=== PATIENT | female | born 1945 | race Caucasian/White ===

== ENCOUNTER → 2021-02-18 | Day surgery (SDC) | payer MEDICARE ==
[~2021-02-18] MED LIST: ADULT LOW DOSE81 MG PO; CENTRUM SILVER1 EAC4 PO; CITRACAL SOFT1 EACH PO; EFFER-K 10 MEQ10 ME1 PO; FAMOTIDINE 40 M40 M1 PO; FOSAMAX 70 MG T70 MG PO; LOSARTAN POTASS50 MG PO; MYCOPHENOLATE500 MG PO; ROSUVASTATIN CA10 MG PO; SMZ-TMP PO; TIZANIDINE HCL2 M1 PO; TOPROL XL50 MG; TRAMADOL 50 MG50 MG PO; TYLENOL PM EX-1 EACH PO; TYLENOL325 MG PO; VITAMIN D21250 MCG PO; ZOLOFT 50 MG TA50 MG PO
--- NOTE | ~2021-02-18 | OP ---
[facility] [address] [place] [address] OPERATIVE REPORT Name: TEMO BURT Room: [facility]#: [id number] Admission: 02/18/21 Attend Phys: Alejandro Stanton Discharge: Date of : 41 Report #: [id number] THIS REPORT FOR: cc: Christopher Merino Ghaison F. DO Patterson,Alejandro Martinez MD ~ DATE OF SURGERY: 02/18/2021 PREOPERATIVE DIAGNOSIS: Left flank 5 cm benign mass. POSTOPERATIVE DIAGNOSIS: Left flank 5 cm benign mass. OPERATION: Excision of left flank benign 5 cm mass. SURGEON: Alejandro Stanton MD ANESTHESIA: General. ESTIMATED BLOOD LOSS: Minimal. SPECIMENS: Left flank mass. DESCRIPTION OF PROCEDURE: After informed consent was obtained, the patient was brought to the operating room and placed supine. SCDs were placed and working, preoperative antibiotics were administered, general anesthesia was induced. The patient was placed in the right lateral decubitus position. The left flank was prepped and draped in the usual sterile fashion. Area was anesthetized with 10 mL of 0.5% Marcaine. A 7 cm incision was made. Cautery dissection was made down through the subcutaneous tissue. This was carried down to the fascia. A lipoma was encountered. This was fully dissected around and excised from the underlying fascia. I then reapproximated the skin in 2 layers with a 3-0 Vicryl in interrupted fashion for the deep layer and 4-0 Monocryl in running intracuticular fashion for the skin. Sterile dressings were applied. COMPLICATIONS: None. DISPOSITION: The patient was taken to recovery in satisfactory condition. By: [id number] [id number] Stanton MD /nt
[2021-02-18 06:49] LABS: HEMATOCRIT 42.6 % (37.0-47.0); HEMOGLOBIN 13.9 gm/dL (12.0-15.0); MCH 30.9 pg (26.0-34.0); MCHC 32.6 g/dL (28.0-37.0); MCV 94.8 fL (80.0-100.0); MPV 9.4 fl. (7.2-11.1); RBC 4.49 mil/uL (4.20-5.00); RDW-CV 13.4 % (10.5-14.5); WBC 9.5 thou/uL (4.0-11.0)
[2021-02-18 07:49] LABS: CALCIUM 9.8 mg/dL (8.5-10.1); CREATININE 1.2 mg/dL (0.6-1.3); POTASSIUM 3.8 mmol/L (3.5-5.1)
--- NOTE | 2021-02-18 14:21 | EKG ---
[place] [address] ELECTROCARDIOGRAM REPORT Name: TEMO BURT Room: [facility]#: [id number] Admission: 02/18/21 Attend Phys: Alejanrdo Richards Discharge: Date of : 41 Date of Service: 02/18/21 0645 Report #: [id number] THIS REPORT FOR: //name// [facility] Test Date: 2021-02-18 Test Time: 06:45:17 Pat Name: TEMO BURT Department: Room: Gender: F Insurance Territory Manager: LINNEA : 1945 Requested By: Martín Ward Order Number: [id number] Isabelle MD: Juve Tripathi Measurements Intervals [place] Rate: 51 P: 11 AK: 196 QRS: -39 QRSD: 113 T: 17 QT: 450 QTc: 415 Interpretive Statements Sinus rhythm Borderline IVCD with LAD Low voltage, precordial leads Abnormal R-wave progression, early transition Minimal ST depression No previous ECG available for comparison Electronically Signed On 02-18-2021 14:21:36 [employer] by Juve Tripathi [email or web address] <ELECTRONICALLY SIGNED> By: Juve Tripathi MD, [facility] 02/18/21 1421 0645 0645 Juve Tripathi MD, [facility] /EPI
--- NOTE | 2021-02-23 12:06 | PATH ---
[address] [address] PATHOLOGY RPT PROCEDURE Name: TEMO BURT Room: [facility].#: [id number] Admission: 02/18/21 Date of : 41 Discharge: Report #: [id number] Path Case #: [id number] [facility] Accession Number: [id number] . 01 Material submitted: . back - LEFT BACK MASS. Modifiers: left . 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 (KAYDEN:jumana; 02/20/2021) MBR 02/20/2021 1549 Local . 02 Electronically signed: . Gabe Jacobs MD, Pathologist NPI- [id number] . 01 Gross description: . Fixative: Formalin Labeled: Left back mass Specimen received: Single segment of bright yellow, lobulated tissue Dimensions: 5.5 x 5.2 x 1.8 cm External surface: Bright yellow, smooth Cut surface: Bright yellow, lobulated and glistening . Produce Department Manager sections are submitted in A1-A2. ([facility]; 02/19/2021) NRI/NRI 02/19/2021 1842 Local . 02 Pathologist provided ICD-10: D17.1 . 02 CPT . 004126 Specimen Comment: A courtesy copy of this report has been sent to [phone] Specimen Comment: [id number] Specimen Comment: Report sent to / DR ORDAZ Specimen Comment: A duplicate report has been generated due to demographic updates. Performed at: 01 [facility] [address], [place], [place] [id number] MD Ankit Brunson MD Phone: [phone] Performed at: 02 [facility] [address], [place], [place] [id number] MD Gabe Jacobs MD Phone: [phone]
== END | disposition home or self-care (01) ==
LOC: M.SUR 06:04
PROVIDERS: Anesthesiology; ATTEND Surgery
DX: D17.1 Benign lipomatous neoplasm of skin and subcutaneous tissue of trunk (principal); Z79.899 Other long term (current) drug therapy; Z20.822 Contact with and (suspected) exposure to COVID-19; Z88.0 Allergy status to penicillin; Z88.8 Allergy status to other drugs, medicaments and biological substances